=== PATIENT | male | born 1990 | race Caucasian/White ===

== ENCOUNTER 2017-08-22 13:10 | Observation (INO) ==
[2017-08-22] MEDS ORDERED: Lidocaine PF 1% Inj 30 ML Vial INFILTRATN ONE (13:40)
[2017-08-22] MEDS ORDERED: Piperacil/Tazo 4.5 GM Premix 4.5 GM/100 ML BAG IV.SIG STA (13:40)
[2017-08-22] MEDS ORDERED: Acetaminophen 325 MG Tablet PO ONE (13:40)
[2017-08-22] MEDS ORDERED: Vancomycin Inj 1,000 MG in Sodium Chlor 0.9% Inj 250 ML IV.SIG STA (13:40)
[2017-08-22] MEDS ORDERED: Sod Chloride 0.9% Inj 400 ML IV.SIG SCH (13:45)
[2017-08-22] MEDS ORDERED: Sod Chloride 0.9% Inj 1,000 ML IV.SIG SCH (13:45)
--- NOTE | 2017-08-22 13:58 | ED ---
HPI General Chief complaint: Skin/Abscess/Foreign Body Stated complaint: Recheck abscess left arm getting worse Time Seen by Provider: 08/22/17 13:25 Source: patient, family, RN notes reviewed and old records reviewed Mode of arrival: ambulatory History of Present Illness HPI narrative: 27yM presenting with left arm infection. The patient was seen in our ED 3 days ago for left forearm abscess/ cellulitis, had an I&D performed, and was sent home on keflex and bactrim. The patient states that since yesterday , he's noticed increased swelling/ pain to the site, chills, and palpitations. He went to an urgent care center last night and was switched to clindamycin but presented to the ED today when he noticed the redness was still spreading. Denies fever. History of IVDA (last used 1 week ago), no known history of MRSA or diabetes. Family history is non-contributory. Related Data Home Medications Medication Instructions Recorded Confirmed clindamycin HCl 300 mg PO QID 08/22/17 08/22/17 clonidine HCl 0.1 mg PO BID 08/22/17 08/22/17 magnesium 200 mg PO DAILY 08/22/17 08/22/17 Previous Rx's Medication Instructions Recorded ibuprofen 600 mg PO Q8H PRN #30 tab 08/19/17 Allergies Allergy/AdvReac Type Severity Reaction Status Date / Time No Known Allergies Allergy Verified 08/22/17 13:20 Review of Systems Except as stated in HPI: all other systems reviewed are negative Constitutional Reports chills Eyes Denies blurry vision ENT Reports nasal congestion Cardiovascular Denies chest pain Respiratory Denies cough Gastrointestinal Denies nausea Genitourinary Denies dysuria Integumentary/Breasts Reports sores Neurologic Denies confusion Psychiatric Denies confusion PMFSH History History Provided By: Patient Medical History Medical History Patient denies medical problems (Acute) Surgical History Surgical History No history of previous surgery (Acute) Social History Social History Substance History: No History of Abuse Second Hand Smoke Exposure: No Smoking Status: Current every day smoker Tobacco Type: Cigarettes How Often Do You Have a Drink Containing Alcohol: 2 to 3 times a week Substance Abuse Detail Marijuana: Substance Use Status: Active Route Used Substance Abuse: Inhalation Reason for Use: Calm Down Immunization History Tetanus Immunization: <5 Years Tetanus Immunization Year if Known: 2016 Hx Influenza Vaccine This Season: No Exam Const General: no acute distress Other: (+) rigors HENMT Head: normocephalic and atraumatic Face and sinus: normal facial exam Eyes General: appearance normal, both eyes and all related structures Pupils: PERRL Chest Chest: normal inspection of the chest Resp Effort & Inspection: normal respiratory effort Auscultation: no rhonchi and no wheezes Cardio Rate: tachycardic Rhythm: regular rhythm GI Inspection: non-distended Palpation: soft and nontender Skin Other: 5 x 7 cm erythematous, raised, warm lesion to left anterior forearm, purulent drainage, (+) lymphagitic streaking up arm, no crepitus Neuro General: alert, awake, oriented x3 and no focal motor deficits Psych Affect: normal affect Procedures Abscess I/D Site: upper extremity Side (if applicable): left Anesthetic used: lidocaine 1% Technique: incised with #11 blade Amount of fluid expressed (mL): 15 Irrigation: No Complications: other (Tolerated well, no immediate complications) Course Initial Documented Vital Signs Temperature 99.8 F H 08/22/17 13:12 Pulse Rate 113 H 08/22/17 13:12 Respiratory Rate 24 08/22/17 13:12 Blood Pressure 149/66 H 08/22/17 13:12 Pulse Oximetry 98 08/22/17 13:12 Last Documented Vital Signs Temperature 99.8 F H 08/22/17 13:12 Pulse Rate 113 H 08/22/17 13:12 Respiratory Rate 24 08/22/17 13:12 Blood Pressure 149/66 H 08/22/17 13:12 Pulse Oximetry 98 08/22/17 13:12 Medical Decision Making [facility] Narrative Medical decision making narrative: Assessment: 27yM presenting with left forearm abscess/ cellulitis despite 3 days of appropriate outpatient antibiotics Wound culture from 08/19 grew group B strep and haemophilus, sensitivities not yet available. Plan: EKG and monitor Labs, including blood cultures and lactate Repeat I&D CXR IV antibiotics This patient cannot go home as he has failed an attempt at outpatient antibiotic therapy. Additionally, he meets sepsis criteria and has an acute kidney injury. He will need IV antibiotics, IV fluids, and re-evaluation at frequent intervals. Patient understands and agrees with plan. Case discussed with Dr. Hines of the internal medicine team. Differential Diagnosis Differential Diagnosis: Differential diagnosis includes, but is not limited to: bacteremia, SIRS/ sepsis Medical Records Medical records reviewed: Yes I reviewed the patient's medical records. Lab Data Lab results reviewed: Yes I reviewed the patient's lab results. Result diagrams: 08/22/17 13:53 08/22/17 13:58 Lab Results 08/22/17 08/22/17 08/22/17 Range/Units 13:53 13:58 13:58 CBC w Diff Auto diff final WBC 7.3 (4.0-11.0) th/mm3 RBC 4.16 L (4.50-5.90) mil/mm3 Hgb 12.7 L (13.0-17.0) gm/dL Hct 37.7 L (39.0-51.0) % MCV 90.4 (80.0-100.0) fL MCH 30.4 (27.0-34.0) pg MCHC 33.6 (32.0-36.0) % RDW 13.2 (11.6-17.2) % Plt Count 402 (150-450) th/mm3 MPV 7.2 (7.0-11.0) fL Neut % (Auto) 54.7 (16.0-70.0) % Lymph % (Auto) 32.5 (9.0-44.0) % [place] % (Auto) 8.7 H (0.0-8.0) % Eos % (Auto) 3.4 (0.0-4.0) % Baso % (Auto) 0.7 (0.0-2.0) % Neut # (Auto) 4.0 (1.8-7.7) th/mm3 Lymph # (Auto) 2.4 (1.0-4.8) th/mm3 [place] # (Auto) 0.6 (0.0-0.9) th/mm3 Eos # (Auto) 0.2 (0.0-0.4) th/mm3 Baso # (Auto) 0.1 (0.0-0.2) th/mm3 WBC Differential . Differential Comment . Sodium 137 (136-145) meq/L Potassium 4.1 (3.5-5.1) meq/L Chloride 102 (98-107) meq/L Carbon Dioxide 27.3 (21.0-32.0) meq/L Anion Gap 8 (5-15) meq/L BUN 27 H (7-18) mg/dL Creatinine 1.60 H (0.60-1.30) mg/dL Estimated GFR 53 L (>89) mL/min Random Glucose 106 (74-106) mg/dL Lactic Acid 1.3 (0.4-2.0) mmol/L Calcium 9.4 (8.5-10.1) mg/dL Total Bilirubin 0.5 (0.2-1.0) mg/dL AST 17 (15-37) U/L ALT 16 (12-78) U/L Alkaline Phosphatase 58 (45-117) U/L Total Protein 8.7 H (6.4-8.2) g/dL Albumin 4.0 (3.4-5.0) g/dL Imaging Data Radiologist's impression: Chest X-Ray 08/22/17 13:40 CONCLUSION: 1. No acute cardiopulmonary disease. ECG Data Interpretation: Rate: 73 BPM Rhythm: Sinus [place]: Normal Intervals: Normal intervals, no blocks, QTc 403 ms Q waves: None T waves: Inverted in V2 ST segments: No elevations or depressions Impression: Non-specific EKG, no changes as compared to EKG from 03/21/2008. Discharge Plan Discharge Disposition Patient Disposition: 30 Still Patient Discharge Condition Condition: Stable Discharge Details Diagnosis: Sepsis, Cellulitis, Abscess, Acute kidney injury Physicians Team ED Provider: Miriam Washington Primary Care Provider: Primary Care TerrieiUrvashi Rxs /Orders / Referrals /Forms Prescriptions: No Action ibuprofen 600 mg tablet 600 mg PO Q8H PRN (Reason: pain) Qty: 30 RF: 0 clindamycin HCl 300 mg Capsule 300 mg PO QID RF: 0 clonidine HCl 0.1 mg Tablet 0.1 mg PO BID RF: 0 magnesium 200 mg Tablet 200 mg PO DAILY RF: 0 Status ED Status: With Doctor
[2017-08-22] MEDS: Sod Chloride 0.9% Inj 1,000 ML IV.SIG SCH ×3 (14:15→18:26)
[2017-08-22 14:20] LABS: Baso # (Auto) 0.1 th/mm3 (0.0-0.2); Baso % (Auto) 0.7 % (0.0-2.0); Eos # (Auto) 0.2 th/mm3 (0.0-0.4); Eos % (Auto) 3.4 % (0.0-4.0); Hematocrit 37.7 % (39.0-51.0); Hemoglobin 12.7 gm/dL (13.0-17.0); Lymph # (Auto) 2.4 th/mm3 (1.0-4.8); Lymph % (Auto) 32.5 % (9.0-44.0); Mean Corpuscular HGB Conc 33.6 % (32.0-36.0); Mean Corpuscular Hemoglobin 30.4 pg (27.0-34.0); Mean Corpuscular Volume 90.4 fL (80.0-100.0); Mean Platelet Volume 7.2 fL (7.0-11.0); Mono # (Auto) 0.6 th/mm3 (0.0-0.9); Mono % (Auto) 8.7 % (0.0-8.0); Neut % (Auto) 54.7 % (16.0-70.0); Platelet Count 402 th/mm3 (150-450); Red Blood Count 4.16 mil/mm3 (4.50-5.90); Red Cell Distribution Width 13.2 % (11.6-17.2); White Blood Count 7.3 th/mm3 (4.0-11.0)
[2017-08-22] MEDS ORDERED: Ibuprofen 600 MG Tablet PO ONE (14:31)
[2017-08-22 14:35] LABS: Chloride 102 meq/L (98-107); Potassium 4.1 meq/L (3.5-5.1); Sodium 137 meq/L (136-145)
--- NOTE | 2017-08-22 14:38 | XR ---
EXAM DATE: 08/22/2017 2:04 PM EDT AGE/SEX: 27 years / Male INDICATIONS: . Fever from abscess. CLINICAL DATA: This is the patient's initial encounter. Patient reports that signs and symptoms have been present for 2 weeks and indicates a pain score of 0/10. MEDICAL/SURGICAL HISTORY: None. None. COMPARISON: No prior exams available for comparison. FINDINGS: No significant focal pleural or parenchymal opacities. The cardiomediastinal contours are unremarkabl e. Osseous structures are intact. CONCLUSION: 1. No acute cardiopulmonary disease. Electronically signed by: Jhoan Sanz MD 08/22/2017 2:37 PM EDT
[2017-08-22 14:39] LABS: Anion Gap 8 meq/L (5-15); Blood Urea Nitrogen 27 mg/dL (7-18); Calcium 9.4 mg/dL (8.5-10.1); Carbon Dioxide 27.3 meq/L (21.0-32.0); Glucose,Random 106 mg/dL (74-106)
[2017-08-22 14:42] LABS: Alanine Aminotransferase 16 U/L (12-78); Aspartate Aminotransferase 17 U/L (15-37); Glomerular Filtration Rate 53 mL/min (>89)
[2017-08-22 14:44] LABS: Total Protein 8.7 g/dL (6.4-8.2)
[2017-08-22 14:45] LABS: Alkaline Phosphatase 58 U/L (45-117)
[2017-08-22] MEDS ORDERED: Acetaminophen 325 MG Tablet PO PRN (17:43)
[2017-08-22] MEDS ORDERED: Temazepam 15 MG Capsule PO PRN (17:43)
[2017-08-22] MEDS ORDERED: Bisacodyl 10 MG Supp RECTAL PRN (17:43)
[2017-08-22] MEDS ORDERED: Heparin - SQ 10,000 UNITS/ML Vial SQ SCH (17:45)
--- NOTE | 2017-08-22 18:09 | P.HPIM ---
History of Present Illness Primary Care Physician: No Primary Care Physician Chief Complaint: Left left arm pain History of Present Illness: Patient is a 27-year-old gentleman with a history of IV drug use who comes to the hospital complaining of increased left arm pain with fevers and chills. He has a history of IV drug use (heroin and Dilaudid) and developed an abscess in the left forearm several days ago. He had an I&D done in the emergency room and was discharged on oral antibiotics. Since that time cultures have come back a beta strep group F and Haemophilus parainfluenza. He was discharged on Keflex and Bactrim and followed up in a urgent care center who thought the arm looked poor and they prescribed clindamycin which he took for a day. The last 24 hours he noticed that there is increased redness and swelling so he came here. Patient has tachycardic with a low-grade temperature of 99.8 and leukocytosis. He has been admitted to the hospital with evidence of early sepsis. An I&D was done in the emergency room again. Patient says since that time about 1:00 his arm has felt better. He has been admitted for these issues - Diagnosis (1) Abscess (2) Acute kidney injury Inpatient Certification: I certify that the inpatient services were ordered in accordance with Medicare regulations governing the order. This includes certification that hospital inpatient services are reasonable and necessary and in the case of services not specified as inpatient-only under 42 CFR 419.22(n), that they are appropriately provided as inpatient services in accordance to with the 2-midnight benchmark under 43 CFR 412.3(e) Review of Systems All other systems reviewed negative except as stated in HPI [facility] - History History Provided By: Patient - Medical History Medical History: Medical History (Last Reviewed 08/22/17 @ 18:08 by Leslye Hines MD) Congestive heart failure Patient denies medical problems - Surgical History Surgical History: Surgical History (Last Reviewed 08/22/17 @ 18:08 by Leslye Hines MD) No history of previous surgery - Family History Family History: Family History (Last Reviewed 08/22/17 @ 18:08 by Leslye Hines MD) Other CAD (coronary artery disease) Cancer - Tobacco History Second Hand Smoke Exposure: No Tobacco Use In Past 30 Days: Yes Smoking Status: Current every day smoker Tobacco Type: Cigarettes - Alcohol History How Often Do You Have a Drink Containing Alcohol: 2 to 3 times a week - Substance Use History Substance History: No History of Abuse - Substance Use Type Marijuana Status: Active Route Used: Inhalation Reason for Use: Calm Down - Immunization History Tetanus Immunization: <5 Years Tetanus Immunization Year if Known: 2016 Hx Influenza Vaccine This Season: No Medications and Allergies Active Medications: Active Medications Acetaminophen (Tylenol) 650 mg PO Q4H PRN PRN Reason: Temp > 100.4 Bisacodyl (Dulcolax Supp) 10 mg RECTAL DAILY PRN PRN Reason: SEVERE CONSITIPATION Heparin Sodium (Porcine) (Heparin Inj) 5,000 units SQ Q8H NATHANAEL Sodium Chloride (Ns Inj) 1,000 mls @ 0 mls/hr IV.SIG .Q0M NATHANAEL Last Infusion: 08/22/17 15:34 Dose: Infused Sodium Chloride (Ns Inj) 1,000 mls @ 0 mls/hr IV.SIG .Q0M NATHANAEL Last Infusion: 08/22/17 16:56 Dose: Infused Sodium Chloride (Ns Inj) 400 mls @ 0 mls/hr IV.SIG .Q0M NATHANAEL Sodium Chloride (Ns Inj) 1,000 mls @ 100 mls/hr IV.CONT .Q10H NATHANAEL Lactulose (Lactulose Liq) 30 ml PO DAILY PRN PRN Reason: SEVERE CONSITIPATION Temazepam (Restoril) 15 mg PO HS PRN PRN Reason: INSOMNIA Allergies Allergy/AdvReac Type Severity Reaction Status Date / Time No Known Allergies Allergy Verified 08/22/17 13:20 Home Medications Medication Instructions Recorded Confirmed Type clindamycin HCl 300 mg PO QID 08/22/17 08/22/17 History clonidine HCl 0.1 mg PO BID 08/22/17 08/22/17 History magnesium 200 mg PO DAILY 08/22/17 08/22/17 History Exam Vital signs: Vital Signs 08/22/17 13:12 08/22/17 15:23 08/22/17 16:53 Temperature 99.8 F H 98.6 F Pulse Rate 113 H 57 L 52 L Respiratory Rate 24 16 16 Blood Pressure 149/66 H 112/51 L 110/60 Pulse Oximetry 98 97 98 Intake & Output 08/21/17 08/22/17 08/22/17 18:59 06:59 18:59 Intake Total 3350 / 3350 Balance 3350 / 3350 Weight 71 kg Intake: IV 3350 / 3350 Zosyn 4.5 GM Premix 4.5 gm In 100 / 100 100 ml @ 200 mls/hr IV.SIG STAT STA Rx#:[id number] NS Inj 1,000 ML @ Wide Open IV. 3000 / 3000 SIG .Q0M NATHANAEL Rx#:[id number] Vancomycin Inj 1,000 MG In NS 250 / 250 Inj 250 ML @ 250 mls/hr IV.SIG STAT STA Rx#:[id number] Other: Date of Last Bowel Movement 08/21/17 Narrative: GENERAL: Patient calm resting and without complaints SKIN: Warm and dry. No rashes or ecchymotic injuries EYES: Pupils equal and round. No scleral icterus. No injection or drainage. ENT: External ear exam normal. No acute nasal bleeding or discharge. Mucous membranes pink and moist. CARDIOVASCULAR: Regular rate and rhythm. No murmurs gallops or rubs appreciated RESPIRATORY: Good air flow and effort without accessory muscle use. Clear to auscultation. Breath sounds equal bilaterally. GASTROINTESTINAL: Abdomen soft, non-tender, nondistended. Hepatic and splenic margins not palpable. MUSCULOSKELETAL: Left arm edema with tenderness and induration around I&D site, extremities without clubbing, cyanosis, or edema. No obvious deformities. NEUROLOGICAL: Awake and alert. No obvious cranial nerve deficits. Motor grossly within normal limits. Five out of 5 muscle strength in the arms and legs. Normal speech. Results - Labs CBC & Chem 7: 08/22/17 13:53 08/22/17 13:58 Labs: Short CBC 08/22/17 Range/Units 13:53 WBC 7.3 (4.0-11.0) th/mm3 Hgb 12.7 L (13.0-17.0) gm/dL Hct 37.7 L (39.0-51.0) % Plt Count 402 (150-450) th/mm3 BMP 08/22/17 13:58 Sodium 137 Potassium 4.1 Chloride 102 Carbon Dioxide 27.3 BUN 27 H Creatinine 1.60 H Calcium 9.4 Liver Function 08/22/17 Range/Units 13:58 Total Bilirubin 0.5 (0.2-1.0) mg/dL AST 17 (15-37) U/L ALT 16 (12-78) U/L Alkaline Phosphatase 58 (45-117) U/L Albumin 4.0 (3.4-5.0) g/dL - Imaging Impressions Chest X-Ray 08/22/17 13:40 CONCLUSION: 1. No acute cardiopulmonary disease. Caprini VTE Risk Assessment Caprini VTE Risk Assessment: No/Low Risk (score <= 1) Caprini Risk Assessment Model: Point Value = 1 Point Value = 2 Point Value = 3 Point Value = 5 Age 41-60 Minor surgery BMI > 25 kg/m2 Swollen legs Varicose veins or History of unexplained or recurrent spontaneous Oral contraceptives or hormone replacement Sepsis (< 1 month) Serious lung disease, including pneumonia (< 1 month) Abnormal pulmonary function Acute myocardial infarction Congestive heart failure (< 1 month) History of inflammatory bowel disease Medical patient at bed rest Age 61-74 Arthroscopic surgery Major open surgery (> 45 min) Laparoscopic surgery (> 45 min) Malignancy Confined to bed (> 72 hours) Immobilizing plaster cast Central venous access Age >= 75 History of VTE Family history of VTE Factor V Leiden Prothrombin [id number] Lupus anticoagulant Anticardiolipin antibodies Elevated serum homocysteine Heparin-induced thrombocytopenia Other congenital or acquired thrombophilia Stroke (< 1 month) Elective arthroplasty Hip, pelvis, or leg fracture Acute spinal cord injury (< 1 month) Prophylaxis Regimen: Total Risk Factor Score Risk Level Prophylaxis Regimen 0-1 Low Early ambulation 2 Moderate Order ONE of the following: *Sequential Compression Device (SCD) *Heparin 5000 units SQ BID 3-4 Higher Order ONE of the following medications: *Heparin 5000 units SQ TID *Enoxaparin/Lovenox 40 mg SQ daily (WT < 150 kg, CrCl > 30 mL/min) *Enoxaparin/Lovenox 30 mg SQ daily (WT < 150 kg, CrCl > 10-29 mL/min) *Enoxaparin/Lovenox 30 mg SQ BID (WT < 150 kg, CrCl > 30 mL/min) AND/OR *Sequential Compression Device (SCD) 5 or more Highest Order ONE of the following medications: *Heparin 5000 units SQ TID (Preferred with Epidurals) *Enoxaparin/Lovenox 40 mg SQ daily (WT < 150 kg, CrCl > 30 mL/min) *Enoxaparin/Lovenox 30 mg SQ daily (WT < 150 kg, CrCl > 10-29 mL/min) *Enoxaparin/Lovenox 30 mg SQ BID (WT < 150 kg, CrCl > 30 mL/min) AND *Sequential Compression Device (SCD) Assessment and Plan - Assessment (1) Abscess Code(s): L02.91 - Cutaneous abscess, unspecified Status: Acute Plan: Failed outpatient treatment continue with Unasyn for now, sensitives pending for beta strep group F, Haemophilus parainfluenza follow-up repeat cultures ID consult (2) Acute kidney injury Code(s): N17.9 - Acute kidney failure, unspecified Status: Acute Plan: C continue IV hydration Repeat labs
[2017-08-22] MEDS: Sod Chloride 0.9% Inj 1,000 ML IV.CONT SCH (18:25)
[2017-08-22 18:42] LABS: Bilirubin,Urine Negative (Negative); Clarity,Urine Clear (Clear); Color,Urine Yellow (Yellw/Straw); Glucose,Urine (UA) Negative (Negative); Leukocyte Esterase,Urine Negative (Negative); Nitrite,Urine Negative (Negative); PH,Urine 5.5 (5.0-8.5); Specific Gravity,Urine Greater/Equal 1.030 (1.002-1.035); Urobilinogen,Urine 0.2 mg/dL (Less than 2)
[2017-08-22 18:46] LABS: RBC,Urine 0-3 /hpf (0-3); Squamous Epithelial Cell,Urine 0-5 /hpf (0-5); WBC,Urine 0-5 /hpf (0-5)
[2017-08-22] MEDS: Heparin - SQ 10,000 UNITS/ML Vial SQ SCH (19:26)
[2017-08-22] MEDS ORDERED: cloNIDine Susp (NICU) 20 MCG/ML 30 ML Bottle PO SCH (21:00)
[2017-08-22] MEDS: Ampicillin/Sulbactam Inj 3 GM in Sodium Chloride 0.9% Inj 100 ML IV.SIG SCH (21:50)
[2017-08-23] MEDS: Heparin - SQ 10,000 UNITS/ML Vial SQ SCH ×2 (02:37→11:41)
[2017-08-23] MEDS: Ampicillin/Sulbactam Inj 3 GM in Sodium Chloride 0.9% Inj 100 ML IV.SIG SCH ×3 (02:37→14:17)
[2017-08-23] MEDS: Sod Chloride 0.9% Inj 1,000 ML IV.CONT SCH ×2 (05:33→15:29)
[2017-08-23 06:01] LABS: Baso # (Auto) 0.1 th/mm3 (0.0-0.2); Baso % (Auto) 0.8 % (0.0-2.0); Eos # (Auto) 0.3 th/mm3 (0.0-0.4); Eos % (Auto) 4.6 % (0.0-4.0); Hematocrit 37.4 % (39.0-51.0); Hemoglobin 11.9 gm/dL (13.0-17.0); Lymph # (Auto) 3.8 th/mm3 (1.0-4.8); Lymph % (Auto) 50.9 % (9.0-44.0); Mean Corpuscular HGB Conc 31.6 % (32.0-36.0); Mean Corpuscular Hemoglobin 29.1 pg (27.0-34.0); Mean Corpuscular Volume 91.9 fL (80.0-100.0); Mean Platelet Volume 7.5 fL (7.0-11.0); Mono # (Auto) 0.8 th/mm3 (0.0-0.9); Mono % (Auto) 10.6 % (0.0-8.0); Neut # (Auto) 2.5 th/mm3 (1.8-7.7); Neut % (Auto) 33.1 % (16.0-70.0); Platelet Count 354 th/mm3 (150-450); Red Blood Count 4.07 mil/mm3 (4.50-5.90); Red Cell Distribution Width 13.1 % (11.6-17.2); White Blood Count 7.5 th/mm3 (4.0-11.0)
[2017-08-23 06:08] LABS: Chloride 109 meq/L (98-107); Potassium 4.2 meq/L (3.5-5.1); Sodium 140 meq/L (136-145)
[2017-08-23 06:19] LABS: Alanine Aminotransferase 13 U/L (12-78); Albumin 2.9 g/dL (3.4-5.0); Alkaline Phosphatase 44 U/L (45-117); Anion Gap 5 meq/L (5-15); Aspartate Aminotransferase 12 U/L (15-37); Blood Urea Nitrogen 17 mg/dL (7-18); Calcium 8.2 mg/dL (8.5-10.1); Carbon Dioxide 26.2 meq/L (21.0-32.0); Glomerular Filtration Rate Greater Than 89 mL/min (>89); Glucose,Random 96 mg/dL (74-106); Total Protein 6.8 g/dL (6.4-8.2)
--- NOTE | 2017-08-23 09:36 | P.PN ---
Subjective Interval history: 27-year-old male who is seen in follow-up for left forearm abscess secondary to IV drug use. Patient states that he is doing much better. Swelling has significantly improved. Pain is tolerable. Patient indicates that over the last 2 days he has had some significant diarrhea which he describes as watery and significant amount. Patient vital signs remained stable , patient is afebrile. Physical Exam Vital signs: Vital Signs 08/22/17 13:12 08/22/17 15:23 08/22/17 16:53 Temperature 99.8 F H 98.6 F Pulse Rate 113 H 57 L 52 L Respiratory Rate 24 16 16 Blood Pressure 149/66 H 112/51 L 110/60 Pulse Oximetry 98 97 98 08/22/17 18:12 08/22/17 20:00 08/23/17 00:00 Temperature 99.3 F 96.8 F L 96.5 F L Pulse Rate 53 L 58 L 53 L Respiratory Rate 18 18 18 Blood Pressure 110/83 117/54 L 116/57 L Pulse Oximetry 99 100 98 08/23/17 08:00 Temperature 97.8 F Pulse Rate 49 L Respiratory Rate 16 Blood Pressure 131/61 Pulse Oximetry 100 Intake & Output 08/22/17 08/23/17 08/23/17 18:59 06:59 18:59 Intake Total 3750 / 3750 2200 / 2200 Balance 3750 / 3750 2200 / 2200 Weight 71 kg 71 kg Intake: IV 3750 / 3750 2200 / 2200 NS Inj 1,000 ML @ 100 mls/hr IV 1000 / 1000 .CONT .Q10H NATHANAEL Rx#:[id number] Unasyn Inj 3 GM In NS Inj 100 200 / 200 ML @ 200 mls/hr IV.SIG Q6H NATHANAEL Rx#:[id number] Zosyn 4.5 GM Premix 4.5 gm In 100 / 100 100 ml @ 200 mls/hr IV.SIG STAT STA Rx#:[id number] NS Inj 1,000 ML @ Wide Open IV. 3400 / 3400 1000 / 1000 SIG .Q0M NATHANAEL Rx#:[id number] Vancomycin Inj 1,000 MG In NS 250 / 250 Inj 250 ML @ 250 mls/hr IV.SIG STAT STA Rx#:[id number] Other: Date of Last Bowel Movement 08/22/17 08/22/17 Narrative: GENERAL: Well-developed, well-nourished, in no acute distress. alert and orientated HEENT: Head is normocephalic without any lesions or masses noted. Facial features are symmetric. Eyes: Extraocular muscles are intact. Conjunctivae were clear. NECK: Supple without any masses. Trachea midline no deviation. No JVD, CARDIAC: Regular rhythm, regular rate. S1/S2 are heard. No murmurs gallops or rubs. LUNGS: Clear to auscultation bilaterally. No wheeze, rhonchi or rales. No use of accessory muscles on inspiration or expiration. ABDOMEN: Soft, nontender. Nondistended. Bowel sounds heard in all 4 quadrants. No organomegaly or masses. Negative rebound, negative guarding EXTREMITIES: No edema, pulses are equal bilaterally. No cyanosis or clubbing NEUROLOGY: Mood and affect appear appropriate. Cranial nerves II through XII grossly intact. Moving all extremities, speech is clear LEFT FOREARM: Incision and drainage wound is nice and clean without any signs of exudates or purulence. No significant erythema. Edema significantly improved. Results - Labs CBC & Chem 7: 08/23/17 05:30 08/23/17 05:30 Laboratory Results - last 24 hr 08/22/17 08/22/17 08/22/17 13:53 13:58 13:58 CBC w Diff Auto diff final WBC 7.3 RBC 4.16 L Hgb 12.7 L Hct 37.7 L MCV 90.4 MCH 30.4 MCHC 33.6 RDW 13.2 Plt Count 402 MPV 7.2 Neut % (Auto) 54.7 Lymph % (Auto) 32.5 [place] % (Auto) 8.7 H Eos % (Auto) 3.4 Baso % (Auto) 0.7 Neut # (Auto) 4.0 Lymph # (Auto) 2.4 [place] # (Auto) 0.6 Eos # (Auto) 0.2 Baso # (Auto) 0.1 WBC Differential . Differential Comment . Sodium 137 Potassium 4.1 Chloride 102 Carbon Dioxide 27.3 Anion Gap 8 BUN 27 H Creatinine 1.60 H Estimated GFR 53 L Random Glucose 106 Lactic Acid 1.3 Calcium 9.4 Total Bilirubin 0.5 AST 17 ALT 16 Alkaline Phosphatase 58 Total Protein 8.7 H Albumin 4.0 Urine Color Urine Clarity Urine pH Ur Specific [place] Urine Protein Urine Glucose (UA) Urine Ketones Urine Occult Blood Urine Nitrate Urine Bilirubin Urine Urobilinogen Ur Leukocyte Esterase Urine RBC Urine WBC Ur Squamous Epith Cells Micro UA Comment Urine Culture Comments 08/22/17 08/23/17 08/23/17 18:25 05:30 05:30 CBC w Diff Auto diff final WBC 7.5 RBC 4.07 L Hgb 11.9 L Hct 37.4 L MCV 91.9 MCH 29.1 MCHC 31.6 L RDW 13.1 Plt Count 354 MPV 7.5 Neut % (Auto) 33.1 Lymph % (Auto) 50.9 H [place] % (Auto) 10.6 H Eos % (Auto) 4.6 H Baso % (Auto) 0.8 Neut # (Auto) 2.5 Lymph # (Auto) 3.8 [place] # (Auto) 0.8 Eos # (Auto) 0.3 Baso # (Auto) 0.1 WBC Differential . Differential Comment . Sodium 140 Potassium 4.2 Chloride 109 H Carbon Dioxide 26.2 Anion Gap 5 BUN 17 Creatinine 0.91 Estimated GFR Greater than 89 Random Glucose 96 Lactic Acid Calcium 8.2 L D Total Bilirubin 0.4 AST 12 L ALT 13 Alkaline Phosphatase 44 L Total Protein 6.8 D Albumin 2.9 L D Urine Color Yellow Urine Clarity Clear Urine pH 5.5 Ur Specific [place] Greater/equal 1.030 Urine Protein Negative Urine Glucose (UA) Negative Urine Ketones Negative Urine Occult Blood Negative Urine Nitrate Negative Urine Bilirubin Negative Urine Urobilinogen 0.2 Ur Leukocyte Esterase Negative Urine RBC 0-3 Urine WBC 0-5 Ur Squamous Epith Cells 0-5 Micro UA Comment Culture not ind Urine Culture Comments Culture not ind Microbiology 08/22/17 14:15 Abscess - Arm Gram Stain - Final - Imaging Impressions Chest X-Ray 08/22/17 13:40 CONCLUSION: 1. No acute cardiopulmonary disease. - Procedures 08/19/17: Incision and drainage of left forearm wound by ER physician Assessment and Plan - Assessment (1) Abscess Code(s): L02.91 - Cutaneous abscess, unspecified Status: Acute Plan: -Failed outpatient treatment with Keflex, Bactrim, clindamycin -Previous cultures do indicate beta strep group F, Haemophilus parainfluenza: Awaiting sensitivities -Continue to follow repeat cultures -Continue with Unasyn for now -Discussed with infectious disease, we reviewed the pathogens involved and she indicates that patient should continue on Unasyn and upon discharge complete 2 weeks worth of Augmentin -Continue daily dressing changes (2) Diarrhea Code(s): R19.7 - Diarrhea, unspecified Status: Acute Plan: -Patient with watery and significant amount of diarrhea -This is complicated by patient being on recent antibiotics to include clindamycin -Obtain C. difficile culture (3) Acute kidney injury Code(s): N17.9 - Acute kidney failure, unspecified Status: Resolved Plan: -Continue IV hydration -Follow-up labs show significant improvement - Plan DVT prevention -Subcutaneous heparin Discharge Planning: Discharge planning within 24-48 hours depending on patient response to treatment , recommendations from infectious disease and other testing
--- NOTE | 2017-08-23 15:14 | ECG ---
Date Performed: 08/22/2017 Time Performed: 13:46:59 PTAGE: 27 years EKG: Sinus rhythm BORDERLINE ECG PREVIOUS TRACING : 03/21/2008 00.43 DOCTOR: Steven Patel Interpretating Date/Time 08/23/2017 15:13:24
== END 2017-08-23 17:19 | disposition home or self-care (01) ==
LOC: PH3 13:10 → PHED 13:10 → PHEDA 15:45 → INTOOBSV 15:45 → PHEDA 16:55 → PH3 17:01
PROVIDERS: ADMIT Hospitalist; ATTEND Hospitalist